=== PATIENT | female | born 1985 | race Caucasian/White ===

== ENCOUNTER 2018-02-27 03:53 | Emergency (ER) | payer MEDICAID, OTHER ==
--- NOTE | 2018-02-27 04:08 | ER Report ---
History and Physical Time Seen By MD: 03:58 Hx. of Stated Complaint: PATIENT STATES SHE STARTED HAVING A BURNING FEELING IN THE BACK OF HER HEAD THAT STARTED 30MINS PRIOR TO EMS ARRIVING TO HER. HPI/ROS CHIEF COMPLAINT: Headache HISTORY OF PRESENT ILLNESS: 32-year-old female traveling on a [employer] bus began to have a burning sensation in the back of her neck. She is concerned that she is suffering a shrunken head. She is concerned that someone in her family, who practices food to is performing a shrunken head ritual on her. Patient called EMS to the bus to bring her in. Patient denies REVIEW OF SYSTEMS: Respiratory: No cough, no dyspnea. Cardiovascular: No chest pain, no palpitations. Gastrointestinal: No vomiting, no abdominal pain. Musculoskeletal: No back pain. Allergies: Coded Allergies: No Known Drug Allergies (Unverified , 02/27/18) Home Meds No Active Prescriptions or Reported Meds Reviewed Nurses Notes: Yes Old Medical Records Reviewed: Yes Constitutional Vital Sign - Last 24 Hours 02/27/18 02/27/18 02/27/18 02/27/18 03:54 04:00 04:30 04:38 Temp 98.3 Pulse 77 78 Resp 16 B/P (MAP) 101/59 100/65 (77) 104/71 (82) Pulse Ox 94 98 02/27/18 02/27/18 02/27/18 02/27/18 04:53 05:00 05:30 05:50 Pulse 80 90 B/P (MAP) 108/65 (79) 122/72 (89) Pulse Ox 98 97 02/27/18 06:00 B/P (MAP) 106/69 (81) Physical Exam General Appearance: The patient is alert, has no immediate need for airway protection and no current signs of toxicity. Vital signs stable, afebrile, pulse ox normal HEENT: Pupils equal and round no injection. Oropharynx without redness or exudate, mucous. Membranes are moist Respiratory: Chest is non tender, lungs are clear to auscultation. Cardiac: regular rate and rhythm Gastrointestinal: Abdomen is soft and non tender, no masses, bowel sounds normal. Musculoskeletal: Neck: Neck is supple and non tender. No thyromegaly, no lymphadenopathy Extremities have full range of motion and are non tender. Skin: No rashes or lesions. DIFFERENTIAL DIAGNOSIS: After history and physical exam differential diagnosis was considered for headache including but not limited to subarachnoid hemorrhage , migraine headache, tension headache and infectious causes such as meningitis, pharyngitis and sinusitis. Medical Decision Making Data Points Result Diagram: 02/27/18 0350 02/27/18 0350 Laboratory Hematology Test 02/27/18 03:50 02/27/18 04:25 Red Blood Count 4.52 M/uL (4.17-5.56) Mean Corpuscular Volume 89.4 fL (80.0-96.0) Mean Corpuscular Hemoglobin 30.8 pg (26.0-33.0) Mean Corpuscular Hemoglobin Concent 34.5 g/dL (32.0-36.0) Red Cell Distribution Width 13.7 % (11.5-14.5) Mean Platelet Volume 8.6 fL (7.2-11.1) Neutrophils (%) (Auto) 50.4 % (39.4-72.5) Lymphocytes (%) (Auto) 39.2 % (17.6-49.6) Monocytes (%) (Auto) 8.4 % (4.1-12.4) Eosinophils (%) (Auto) 0.8 % (0.4-6.7) Basophils (%) (Auto) 1.2 % (0.3-1.4) Nucleated RBC Relative Count (auto) 0.1 /100WBC Neutrophils # (Auto) 3.5 K/uL (2.0-7.4) Lymphocytes # (Auto) 2.7 K/uL (1.3-3.6) Monocytes # (Auto) 0.6 K/uL (0.3-1.0) Eosinophils # (Auto) 0.1 K/uL (0.0-0.5) Basophils # (Auto) 0.1 K/uL (0.0-0.1) Nucleated RBC Absolute Count (auto) 0.00 K/uL Sodium Level 139 mmol/L (137-145) Potassium Level 4.0 mmol/L (3.5-5.0) Chloride Level 100 mmol/L (98-107) Carbon Dioxide Level 27 mmol/L (22-31) Blood Urea Nitrogen 12 mg/dl (7-18) Creatinine 0.70 mg/dl (0.52-1.04) Glomerular Filtration Rate Calc > 60.0 Random Glucose 99 mg/dl (75-110) Calcium Level 10.2 mg/dl (8.4-10.2) Magnesium Level 1.9 mg/dl (1.7-2.2) Total Bilirubin 0.3 mg/dl (0.2-1.3) Aspartate Amino Transf (AST/SGOT) 23 U/L (0-35) Alanine Aminotransferase (ALT/SGPT) 22 U/L (0-56) Alkaline Phosphatase 85 U/L (0-126) Total Protein 7.0 gm/dl (6.3-8.2) Albumin 4.1 g/dl (3.5-5.0) Salicylates Level < 10 mg/L Salicylate Last Dose Date unk Acetaminophen Level < 10 ug/ml Serum Alcohol < 10 mg/dl Urine Color Yellow Urine Clarity Slightly-cloudy Urine pH 5.0 pH (4.8-9.5) Urine Specific Strong 1.025 Urine Protein Negative mg/dL (NEGATIVE) Urine Glucose (UA) Negative mg/dL (NEGATIVE) Urine Ketones Negative mg/dL (NEGATIVE) Urine Blood Negative (NEGATIVE) Urine Nitrite Negative (NEGATIVE) Urine Bilirubin Negative (NEGATIVE) Urine Urobilinogen Negative mg/dL (0.2-1.9) Urine Leukocyte Esterase Negative (NEGATIVE) Urine RBC 1 /HPF (0-2/HPF) Urine WBC 3 /HPF (0-5/HPF) Urine Squamous Epithelial Cells Many /LPF (</=FEW) Urine Transitional Epithelial Cells Few /LPF (NONE-FEW) Urine Bacteria Negative /HPF (NONE-FEW) Urine Mucus Few /HPF (NONE-FEW) Urine HCG, Qualitative Negative (NEGATIVE) Urine Opiates Screen Negative Urine Barbiturates Screen Negative Ur Tricyclic Antidepressants Screen Negative Urine Phencyclidine Screen Negative Urine Amphetamines Screen Positive Urine Benzodiazepines Screen Negative Urine Cocaine Screen Negative Urine Cannabinoids Screen Negative Chemistry Test 02/27/18 03:50 02/27/18 04:25 White Blood Count 7.0 k/uL (4.5-11.0) Red Blood Count 4.52 M/uL (4.17-5.56) Hemoglobin 13.9 g/dL (12.0-16.0) Hematocrit 40.4 % (34.0-47.0) Mean Corpuscular Volume 89.4 fL (80.0-96.0) Mean Corpuscular Hemoglobin 30.8 pg (26.0-33.0) Mean Corpuscular Hemoglobin Concent 34.5 g/dL (32.0-36.0) Red Cell Distribution Width 13.7 % (11.5-14.5) Platelet Count 384 K/uL (150-450) Mean Platelet Volume 8.6 fL (7.2-11.1) Neutrophils (%) (Auto) 50.4 % (39.4-72.5) Lymphocytes (%) (Auto) 39.2 % (17.6-49.6) Monocytes (%) (Auto) 8.4 % (4.1-12.4) Eosinophils (%) (Auto) 0.8 % (0.4-6.7) Basophils (%) (Auto) 1.2 % (0.3-1.4) Nucleated RBC Relative Count (auto) 0.1 /100WBC Neutrophils # (Auto) 3.5 K/uL (2.0-7.4) Lymphocytes # (Auto) 2.7 K/uL (1.3-3.6) Monocytes # (Auto) 0.6 K/uL (0.3-1.0) Eosinophils # (Auto) 0.1 K/uL (0.0-0.5) Basophils # (Auto) 0.1 K/uL (0.0-0.1) Nucleated RBC Absolute Count (auto) 0.00 K/uL Glomerular Filtration Rate Calc > 60.0 Calcium Level 10.2 mg/dl (8.4-10.2) Magnesium Level 1.9 mg/dl (1.7-2.2) Total Bilirubin 0.3 mg/dl (0.2-1.3) Aspartate Amino Transf (AST/SGOT) 23 U/L (0-35) Alanine Aminotransferase (ALT/SGPT) 22 U/L (0-56) Alkaline Phosphatase 85 U/L (0-126) Total Protein 7.0 gm/dl (6.3-8.2) Albumin 4.1 g/dl (3.5-5.0) Salicylates Level < 10 mg/L Salicylate Last Dose Date unk Acetaminophen Level < 10 ug/ml Serum Alcohol < 10 mg/dl Urine Color Yellow Urine Clarity Slightly-cloudy Urine pH 5.0 pH (4.8-9.5) Urine Specific Strong 1.025 Urine Protein Negative mg/dL (NEGATIVE) Urine Glucose (UA) Negative mg/dL (NEGATIVE) Urine Ketones Negative mg/dL (NEGATIVE) Urine Blood Negative (NEGATIVE) Urine Nitrite Negative (NEGATIVE) Urine Bilirubin Negative (NEGATIVE) Urine Urobilinogen Negative mg/dL (0.2-1.9) Urine Leukocyte Esterase Negative (NEGATIVE) Urine RBC 1 /HPF (0-2/HPF) Urine WBC 3 /HPF (0-5/HPF) Urine Squamous Epithelial Cells Many /LPF (</=FEW) Urine Transitional Epithelial Cells Few /LPF (NONE-FEW) Urine Bacteria Negative /HPF (NONE-FEW) Urine Mucus Few /HPF (NONE-FEW) Urine HCG, Qualitative Negative (NEGATIVE) Urine Opiates Screen Negative Urine Barbiturates Screen Negative Ur Tricyclic Antidepressants Screen Negative Urine Phencyclidine Screen Negative Urine Amphetamines Screen Positive Urine Benzodiazepines Screen Negative Urine Cocaine Screen Negative Urine Cannabinoids Screen Negative Toxicology Test 02/27/18 03:50 02/27/18 04:25 Salicylates Level < 10 mg/L Salicylate Last Dose Date unk Acetaminophen Level < 10 ug/ml Serum Alcohol < 10 mg/dl Urine Opiates Screen Negative Urine Barbiturates Screen Negative Ur Tricyclic Antidepressants Screen Negative Urine Phencyclidine Screen Negative Urine Amphetamines Screen Positive Urine Benzodiazepines Screen Negative Urine Cocaine Screen Negative Urine Cannabinoids Screen Negative Urinalysis Test 02/27/18 04:25 Urine Color Yellow Urine Clarity Slightly-cloudy Urine pH 5.0 pH (4.8-9.5) Urine Specific Strong 1.025 Urine Protein Negative mg/dL (NEGATIVE) Urine Glucose (UA) Negative mg/dL (NEGATIVE) Urine Ketones Negative mg/dL (NEGATIVE) Urine Blood Negative (NEGATIVE) Urine Nitrite Negative (NEGATIVE) Urine Bilirubin Negative (NEGATIVE) Urine Urobilinogen Negative mg/dL (0.2-1.9) Urine Leukocyte Esterase Negative (NEGATIVE) Urine RBC 1 /HPF (0-2/HPF) Urine WBC 3 /HPF (0-5/HPF) Urine Squamous Epithelial Cells Many /LPF (</=FEW) Urine Transitional Epithelial Cells Few /LPF (NONE-FEW) Urine Bacteria Negative /HPF (NONE-FEW) Urine Mucus Few /HPF (NONE-FEW) Urine HCG, Qualitative Negative (NEGATIVE) ED Course/Re-evaluation ED Course Patient was admitted to examination room. H&P was done. The differential diagnoses was considered. On clinical examination. Patient is alert and oriented 3. She has some irrational beliefs. The people are trying to shrink her head. She is not suicidal or homicidal. Diagnostic evaluation is performed. Patient's tox screen is positive for methamphetamines. Patient was medicated with Zyprexa 10 mg by mouth. Patient discharged to follow up with [facility]. Decision to Disposition Date: February 27, 2018 Decision to Disposition Time: 04:53 Depart Departure Latest Vital Signs Vital Signs Date Time Temp Pulse Resp B/P (MAP) Pulse Ox O2 Delivery O2 Flow Rate FiO2 02/27/18 06:00 106/69 (81) 02/27/18 05:50 90 97 02/27/18 03:54 98.3 16 Impression: Primary Impression: Acute psychosis Additional Impression: Methamphetamine abuse Condition: Improved Disposition: HOME OR SELF-CARE Referrals: [facility] New Scripts No Active Prescriptions or Reported Meds Patient Instructions: Polysubstance Abuse (ED) Additional Instructions: Stop using illegal substances. Follow up with [facility] Problem Qualifiers PHUONG WELCH DO February 27, 2018 04:08
[2018-02-27 04:27] LABS: PLATELET COUNT, AUTOMATED 384 K/uL (150-450)
[2018-02-27] MEDS ORDERED: OLANZapine ZYDIS ODT 5MG TABDP PO ONE (05:00)
[2018-02-27 06:00] VITALS: BP 106/69
== END 2018-02-27 06:09 | disposition home or self-care (01) ==
LOC: ER 03:57
DX: F23 Brief psychotic disorder (principal); F15.10 Other stimulant abuse, uncomplicated
CPT/HCPCS: 80305; 81001; 81025; 83735; 84443; 85025; 99284; G0480; 80320; 80329; 82040; 82247; 82310; 82374; 82435; 82565; 82947; 84075; 84132; 84155; 84295; 84450; 84460; 84520

== ENCOUNTER 2018-02-27 07:41 | Emergency (ER) | payer MEDICAID, OTHER ==
[2018-02-27 07:42] VITALS: BP 126/96
--- NOTE | 2018-02-27 08:00 | ER Report ---
History and Physical Time Seen By MD: 07:15 Hx. of Stated Complaint: PATIEN REPORTS THAT SHE THINKS CANNIBALS ARE EATING HER HEAD HPI/ROS CHIEF COMPLAINT: Acute psychosis, "cannibals are trying to eat her " HISTORY OF PRESENT ILLNESS: Patient is a 32-year-old female who was seen overnight for concerns of having "her head shrunken". Patient was initially pulled off a [employer] bus. She was evaluated, medically cleared by physical exam and laboratory findings and discharged with Zyprexa. Patient returns this morning with complaints of "[employer] trying to eat her" and her "father trying to kill her". Patient was brought in by police officers due to concern for patient not being safe. Patient denies suicidal or homicidal ideations at this time. She did have a tox screen positive for amphetamines however currently denies taking any. She is visibly anxious, fearful that she is going to . Patient denies fevers, chills, chest pain, shortness of breath. REVIEW OF SYSTEMS: Constitutional: No fever, no chills. Eyes: No discharge. ENT: No sore throat. Cardiovascular: No chest pain, no palpitations. Respiratory: No cough, no shortness of breath. Gastrointestinal: No abdominal pain, no vomiting. Genitourinary: No hematuria. Musculoskeletal: No back pain. Skin: No rashes. Neurological: No headache. Allergies: Coded Allergies: No Known Drug Allergies (Unverified , 02/27/18) Home Meds No Active Prescriptions or Reported Meds Hx Substance Use Disorder: No Hx Alcohol Use: No Constitutional Vital Sign - Last 24 Hours 02/27/18 07:42 Pulse 119 Resp 24 B/P (MAP) 126/96 Pulse Ox 94 O2 Delivery Room Air Physical Exam General Appearance: The patient is alert, has no immediate need for airway protection and no signs of toxicity. + anxious appearing Eyes: Pupils equal and round no pallor or injection. ENT, Mouth: Mucous membranes are moist. Respiratory: There are no retractions, lungs are clear to auscultation. Cardiovascular: + tachycardic and rhythm. Gastrointestinal: Abdomen is soft and non tender, no masses, bowel sounds normal. Neurological: Moving all extremities, no focal deficits Skin: Warm and dry, no rashes. Musculoskeletal: Extremities are nontender, nonswollen and have full range of motion. DIFFERENTIAL DIAGNOSIS: After history and physical exam differential diagnosis was considered for acute psychosis, underlying psychiatric disorder, intoxication. trauma Medical Decision Making ED Course/Re-evaluation ED Course Patient is a 32-year-old female here with complaints of acute psychosis. He was previously evaluated overnight for concerns of "having her head shrunken". She was medically cleared with laboratory and physical examination and discharged with Zyprexa. Patient returns escorted by police officers due to "concern for cannibals eating her" and her father trying to kill her. She is very anxious and fearful at time of evaluation concerned that "she is going to ". Patient' s labs were positive for amphetamines out of the patient currently denies taking this drug. I discussed the patient with on-call psychiatry attending accepted the patient to the floor. Patient initially was willing to voluntarily check in for evaluation on the behavioral health floor. She was mildly tachycardic and tachypneic on examination, anxious, otherwise HD stable, afebrile, normotensive. Decision to Disposition Date: February 27, 2018 Decision to Disposition Time: 08:06 Depart Departure Latest Vital Signs Vital Signs Date Time Temp Pulse Resp B/P (MAP) Pulse Ox O2 Delivery O2 Flow Rate FiO2 02/27/18 07:42 119 24 126/96 94 Room Air Impression: Primary Impression: Acute psychosis Additional Impression: Methamphetamine abuse Condition: Condition Unchanged Disposition: Admitted from ER New Scripts No Active Prescriptions or Reported Meds Problem Qualifiers MARLEE CANDELARIO DO February 27, 2018 08:00
== END 2018-02-27 08:37 ==
LOC: ER 08:14
DX: F23 Brief psychotic disorder (principal); F15.10 Other stimulant abuse, uncomplicated
CPT/HCPCS: 99285

== ENCOUNTER 2018-02-27 08:32 | Inpatient (IN) | payer MEDICAID, OTHER ==
[~2018-02-27] VITALS: Ht 160 cm; Wt 58.5 kg
[2018-02-27 08:45] VITALS: BP 122/62
[2018-02-27] MEDS ORDERED: LORazepam 1 MG TAB ONE ×2 (09:01→09:22)
[2018-02-27] MEDS ORDERED: OLANZapine ZYDIS ODT 5MG TABDP ONE (09:01)
[2018-02-27] MEDS ORDERED: LORazepam 1 MG TAB PO ONE ×2 (09:05→09:30)
[2018-02-27] MEDS ORDERED: OLANZapine ZYDIS ODT 5MG TABDP PO ONE (09:05)
[2018-02-27] MEDS ORDERED: LORazepam 1 MG TAB PO PRN (16:40)
[2018-02-27 18:25] VITALS: BP 116/70
[2018-02-27] MEDS ORDERED: OLANZapine ZYDIS ODT 5MG TABDP PO SCH (21:00)
[2018-02-28 05:31] VITALS: BP 127/86
--- NOTE | 2018-02-28 13:28 | BHS Progress Note ---
[facility] - Subjective Progress Notes Subjective Patient noted to be much more calm today. Patient quiet, making limited eye contact with male staff, and slightly better with female staff. Patient likely suffering from stimulant use induced psychosis from methamphetamine. Eating and sleeping well. Will schedule zyprexa at [facility]. Will stop ativan. Suicidal Ideation: None Homicidal Ideation: None [facility] - Objective Physical Exam Vital Signs Vital Signs Date Time Temp Pulse Resp B/P (MAP) Pulse Ox O2 Delivery O2 Flow Rate FiO2 02/28/18 05:31 98.4 84 16 127/86 (100) 94 Room Air Muscle Strength and Tone: WNL Gait and Station: Steady [facility] Medications Reviewed: Side Effects, Benefits of Medication, Risks Allergies Reviewed: Yes Mental Status Exam General Appearance: Casual, Well Groomed, No Good Eye Contact, Cooperative, Polite, Good Interaction, No Unkept, No Tearful, No Psychomotor Agitation, No Psychomotor Retardation, Bizarre Mannerisms, Tics Speech: Clear, Spontaneous, Normal Rate, Normal Rhythm, No Normal Volume (quiet ) Mood: Dysthmic/Depressed (likely amphetamine crash) Affect: Calm, Flat, Withdrawn, No Tearful, No Anxious, No Agitated Thought Process: No Loose Associations, No Flight of Ideas Thought Content: No Suicidal Ideation, No Homicidal Ideation, Delusions ( ongoing somatic delusions, likely amphetamine induced. ), No Auditory Halllucinations, No Visual Hallucinations, No Thought Broadcasting, No Ideas of Reference, No Obsessions, Compulsions Sensorium: Clear Cognition: Alert & Oriented-Person, Alert & Oriented-Place, Alert & Oriented- Time, No [id number] Memory: Immediate, Recent, Remote Intelligence: Average Insight Judgment: Poor (patient does not seem to understand likely corelation of symptoms with stimulant use. 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 Last Edited By: Alireza Krishnan on February 28, 2018 13:27 Status: Acute (2) Stimulant use disorder Status: Chronic Condition 1. continue treatment. 2. zyprexa QHS. ALIREZA KRISHNAN MD February 28, 2018 13:28
[2018-02-28 13:57] VITALS: BP 114/83
[2018-02-28] MEDS: diphenhydrAMINE 25 MG CAP PO SCH (20:19)
[2018-02-28] MEDS ORDERED: OLANZapine 5 MG TAB PO SCH (21:00)
[2018-02-28 22:20] VITALS: BP 115/82
[2018-03-01 05:07] VITALS: BP 115/89
[2018-03-01] MEDS: OLANZapine 5 MG TAB PO SCH (09:01)
--- NOTE | 2018-03-01 10:32 | BHS Progress Note ---
[facility] - Subjective Progress Notes Subjective Patient asking this provider today if "cannibals are consuming my bodily fluids " and appearing to try to capture the attention of this provider by purposefully jerking her body sporadically during the interview. Will continue to try and gather collateral information. When asked when this patient was psychiatrically hospitalized last, she replied "I don't Know". Will increase zyprexa today with AM dosing as well, and continue to try and contact patient's sister who lives in [place]. Patient continues to focus on "my head is shrinking" and "I don't want to go to hell when I ". Appetite good, Sleep delayed some, but mostly intact. No other concerns today. Suicidal Ideation: None Homicidal Ideation: None [facility] - Objective Physical Exam Vital Signs Vital Signs Date Time Temp Pulse Resp B/P (MAP) Pulse Ox O2 Delivery O2 Flow Rate FiO2 03/01/18 05:07 99.6 111 16 115/89 (98) 95 Room Air Muscle Strength and Tone: WNL Gait and Station: Steady [facility] Medications Reviewed: Side Effects, Benefits of Medication, Risks Allergies Reviewed: Yes Mental Status Exam General Appearance: Casual, Well Groomed, No Good Eye Contact (some better today ), Cooperative, Polite, Good Interaction, No Unkept, No Tearful, No Psychomotor Agitation, No Psychomotor Retardation, Bizarre Mannerisms, Tics Speech: Clear, Spontaneous, Normal Rate, Normal Rhythm, No Normal Volume (quiet ) Mood: Dysthmic/Depressed (likely amphetamine crash) Affect: Calm, Flat, Withdrawn, No Tearful, No Anxious, No Agitated Thought Process: No Loose Associations, No Flight of Ideas Thought Content: No Suicidal Ideation, No Homicidal Ideation, Delusions ( ongoing somatic delusions, likely amphetamine induced. ), No Auditory Halllucinations, No Visual Hallucinations, No Thought Broadcasting, No Ideas of Reference, No Obsessions, Compulsions Sensorium: Clear Cognition: Alert & Oriented-Person, Alert & Oriented-Place, Alert & Oriented- Time, No [id number]-[id number] Memory: Immediate, Recent, Remote Intelligence: Average Insight Judgment: Poor (patient does not appear to be able to understand likely corelation of symptoms with stimulant use. 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 Last Edited By: Alireza Krishnan on February 28, 2018 13:27 Status: Acute (2) Stimulant use disorder Status: Chronic Condition 1. increase zyprexa today to 5mg QAM and 15mg QHS 2. contact family members. ALIREZA KRISHNAN MD March 01, 2018 10:32
--- NOTE | 2018-03-01 12:31 | HISTORY AND PHYSICAL ---
DATE OF ADMISSION: February 27, 2018 DATE OF INITIAL PSYCHIATRIC INTERVIEW: February 27, 2018, approximately 0900. PRESENTING PROBLEM, CHIEF COMPLAINT "My head is shrinking. I am going to . Please don't let me go to hell when I . The cannibals are trying to eat me." HISTORY OF PRESENT ILLNESS Patient is a 32-year-old female that originally presented to the emergency department, reporting she was traveling on a [employer] bus and began to have a burning sensation in the back of her neck. She was concerned with thoughts that her head was shrinking, and that someone in her family was performing a shrunken head ritual on her. She had called EMS to the bus to bring her in. Upon initial evaluation, patient was positive for amphetamines. She was encouraged to stop use of illegal substances. She was to follow up with [facility], and was given Zyprexa Zydis 10 mg one dose. Patient was discharged from the emergency room, although returned to the emergency department reporting that cannibals were trying to eat her. Patient had previously been medical cleared by physical exam and discharged with Zyprexa, although returned, reporting her father was trying to kill her, and having been brought in the second time by police officers due to concern for patient not being safe. Patient visibly anxious, fearful that she was going to . She denied suicidal or homicidal ideation. She denies use of illicit substances. She was agreeable to a voluntary admission to Behavioral Health Unit for further evaluation and treatment. Unable to obtain accurate history when initially interviewed, repeating the phrase, "The cannibals are going to eat me. Please don't let me ." in response to all questions. She denies depression, anxiety, anger, denies visual or auditory hallucinations. She denies intent to harm herself or others. She is visibly anxious, tremulous, unwilling to sit down for any length of time to meet with team members. She is pacing, paranoid, and untrustworthy of staff members. MENTAL HEALTH HISTORY Unable to accurately obtain, as patient answering "no" to history of previous inpatient psychiatric hospitalizations or suicide attempts. It is unknown at this time if she has previously had mental health care or been prescribed medications. FAMILY PSYCHIATRIC HISTORY Unable to obtain at present time due to psychosis. MEDICAL HISTORY Unable to obtain at present time due to psychosis. Answering "no" to all questions. SOCIAL HISTORY Patient reports that she was born in [place], [place]. She reports she has been and on one occasion. She has two children ages 7 and 12. She states her has custody of them, unknown if she is currently . She reports that she was traveling from [place] to [place], [place]. It is unknown if she has been accompanied by anyone, although did summon EMS support due to paranoia and thoughts that people were poisoning her. LEGAL HISTORY Unknown. OFFENDER/VICTIM ISSUES Unknown. SUBSTANCE ABUSE HISTORY Answering "no" to previous use of illicit substances, although positive for amphetamines on urine drug screen. Blood alcohol level is negative. PHYSICAL EXAMINATION Please see emergency room notes for physical exam. Vital signs at time of initial assessment include temperature of 99.2, pulse of 100, blood pressure 122 /62, pulse oximetry 95% on room air. LABORATORY DATA Laboratory data including CBC within normal limits. Chemistry panel within normal limits. Urine screen within normal limits with many squamous epithelial cells. Toxicology includes salicylate, acetaminophen, serum alcohol levels less than 10. Urine screen negative for opiates, barbiturates, tricyclics, phencyclidine, benzodiazepines, cocaine and cannabinoids. Positive for amphetamines. MENTAL STATUS EXAMINATION GENERAL APPEARANCE, BEHAVIOR AND ATTITUDE: Patient is pacing, anxious, tremulous. She is uncooperative with interview, untrustworthy of team members, paranoid. Psychomotor agitation. SPEECH: Regular volume, tone. Limited responses. Guarded with information. Fearful. MOOD: Dysthymic, anxious. AFFECT: Mood congruent. THOUGHT PROCESS: Illogical, uhd-fupd-ixlyiwqj. Seems confused at times. Limited responses. Difficulty following questions. THOUGHT CONTENT: Denying suicidal or homicidal ideation. Delusional. Paranoid. Denies visual or auditory hallucinations. SENSORIUM: Other. Possibly responding to audio hallucinations. COGNITION: Oriented to person. Disoriented to place, time, situation. MEMORY: Immediate, recent, remote with deficit. Difficulty remembering recent and remote events. Poor historian. Guarded with information. INTELLIGENCE: Unable to accurately assess. INSIGHT AND JUDGMENT: Considered poor related to current psychosis. ASSESSMENT Patient is a 32-year-old female that presented to the emergency room initially after having called EMS to the [facility] due to reports of burning in her neck, concerned that her head was shrinking and that someone in her family was performing a ritual on her. Patient positive for amphetamines. She was medically cleared and discharged with olanzapine 10 mg, encouraged to follow up with outpatient mental health services and encouraged to stop using illicit substances. She returned to the emergency room after having been brought in by police due to concerns that she was unsafe, reporting "cannibals are trying to eat me". Reporting thoughts that her father was trying to kill her. Fearful of dying, reporting that her head was shrunken. Patient was agreeable to voluntary transfer to the behavioral health unit for further evaluation and treatment. DIAGNOSES PER DSM-V Unspecified psychosis. Stimulant use disorder, positive for amphetamines Rule out substance-induced psychosis. PLAN 1. Will admit to the unit. 2. Necessary precautions will be implemented. 3. Individual and group therapy to be initiated 4. Medications will be administered and titrated accordingly. 5. Further labs, imaging as appropriate. 6. Estimated length of stay unknown at present time. Discharge dependent on daily evaluations and progress. We will continue to monitor closely, maintain precautions and obtain collateral information and accurate history. ALISSA
[2018-03-01 14:33] VITALS: BP 135/83
[2018-03-01] MEDS ORDERED: MAGNESIUM SULF GRAN 454 GM BOX TP PRN (19:00)
[2018-03-01] MEDS: diphenhydrAMINE 25 MG CAP PO SCH (19:07)
[2018-03-01] MEDS ORDERED: CLOTRIMAZOLE 1% CR 30 GM TUBE TP ONE (20:00)
[2018-03-01] MEDS ORDERED: OLANZapine 5 MG TAB PO SCH (21:00)
[2018-03-01] MEDS ORDERED: ACETAMINOPHEN 325 MG TAB ONE (22:19)
[2018-03-01] MEDS: ACETAMINOPHEN 325 MG TAB PO PRN (22:27)
[2018-03-02] MEDS ORDERED: DIAZEPAM 10 MG TAB PO ONE (00:25)
[2018-03-02 01:00] VITALS: BP 117/76
[2018-03-02 07:45] VITALS: BP 106/70
[2018-03-02] MEDS: OLANZapine 5 MG TAB PO SCH (08:12)
--- NOTE | 2018-03-02 10:34 | BHS Progress Note ---
[facility] - Subjective Progress Notes Subjective Patient reluctantly responding to prompting regarding self care on the unit, patient having difficulty sleeping last night even on increased dosing of zyprexa. Will consider switch to low dose Thorazine for more beneficial effects with psychosis and sleep. Patient also demonstrating some underlying cluster B personality symptoms at times. Will continue treatment with focus on collateral information gathering, with search for potential relatives in [place] who could possibly assist with travel. Patient clearly indicating that she what like to return to [place], [place]. Suicidal Ideation: None Homicidal Ideation: None [facility] - Objective Physical Exam Vital Signs Vital Signs Date Time Temp Pulse Resp B/P (MAP) Pulse Ox O2 Delivery O2 Flow Rate FiO2 03/02/18 08:39 120 03/02/18 07:45 98.7 106/70 (82) 96 Room Air 03/02/18 01:00 16 Muscle Strength and Tone: WNL Gait and Station: Steady [facility] Medications Reviewed: Side Effects, Benefits of Medication, Risks Allergies Reviewed: Yes Mental Status Exam General Appearance: Casual, Well Groomed, Good Eye Contact (some better today ) , Cooperative, Polite, Good Interaction, No Unkept, No Tearful, No Psychomotor Agitation, No Psychomotor Retardation, Bizarre Mannerisms, Tics Speech: Clear, Spontaneous, Normal Rate, Normal Rhythm, No Normal Volume (quiet ) Mood: Dysthmic/Depressed (likely amphetamine crash) Affect: Calm, Flat, Withdrawn, No Tearful, No Anxious, No Agitated Thought Process: No Loose Associations, No Flight of Ideas Thought Content: No Suicidal Ideation, No Homicidal Ideation, Delusions ( ongoing somatic delusions, likely amphetamine induced. ), No Auditory Halllucinations, No Visual Hallucinations, No Thought Broadcasting, No Ideas of Reference, No Obsessions, Compulsions Sensorium: Clear Cognition: Alert & Oriented-Person, Alert & Oriented-Place, Alert & Oriented- Time, No Vrnae-Celcvbdz-Iiqukqqia Memory: Immediate, Recent, Remote Intelligence: Average Insight Judgment: Poor (patient does not appear to be able to understand likely corelation of symptoms with stimulant use. ) [facility] Assessment and Plan Piip-ti-Muuc Encounter Date: March 02, 2018 Auam-yz-Vpqu Encounter Time: 10:00 [facility] Plan: Necessary Precautions, Individual/Group Therapy, Admin/Titrate Meds, Educate Patient Multpiple Antipsychotics Used: No Problems: (1) Amphetamine and psychostimulant-induced psychosis with delusions Optional Permanent Comment: rule out psychosis unspecified, likely underlying [facility] psychotic process. Last Edited By: Alireza Krishnan on March 02, 2018 10:24 Status: Acute (2) Stimulant use disorder Status: Chronic Condition 1. continue treatment. 2. consider thorazine 3. EKG today 4. Continue search for contacts. ALIREZA KRISHNAN MD March 02, 2018 10:34
--- NOTE | 2018-03-02 10:35 | EKG ---
FACILITY: [facility] PATIENT NAME: MYRNA WEINBERG : [id number] MR: [id number] V: [id number] EXAM DATE: ORDERING PHYSICIAN: ALIREZA KRISHNAN TECHNOLOGIST: CHELSEA Razo Reason : ANTIPSYCHOTIC USE Blood Pressure : / mmHG Vent. Rate : 111 BPM Atrial Rate : 111 BPM P-R Int : 130 ms QRS Dur : 068 ms QT Int : 306 ms P-R-T Axes : 068 082 038 degrees QTc Int : 416 ms Sinus tachycardia Otherwise normal ECG Confirmed by EZE CASTRO ([id number]) on 03/02/2018 1:16:04 PM Referred By: ARIELLA Confirmed By:EZE CASTRO
[2018-03-02] MEDS ORDERED: chlorproMAZINE 25 MG TAB PO ONE (10:40)
[2018-03-02] MEDS: chlorproMAZINE 25 MG TAB PO PRN ×2 (12:38→23:58)
[2018-03-02] MEDS: ESCITALOPRAM OXALATE 10 MG TAB PO SCH (12:38)
[2018-03-02] MEDS ORDERED: RISP2TAB70 PO (12:58)
[2018-03-02] MEDS ORDERED: ESCI20TA38 PO (12:58)
[2018-03-02] MEDS ORDERED: ESCI10TA8 PO (12:58)
[2018-03-02] MEDS: diphenhydrAMINE 25 MG CAP PO SCH (19:55)
[2018-03-02 20:54] VITALS: BP 113/90
[2018-03-02] MEDS ORDERED: chlorproMAZINE 25 MG TAB PO SCH (21:00)
[2018-03-03] MEDS ORDERED: LORazepam 2 MG/ML VIAL IM PRN (01:45)
[2018-03-03] MEDS ORDERED: diphenhydrAMINE 50 MG/ML VIAL IM PRN (01:45)
[2018-03-03] MEDS: chlorproMAZINE 25 MG TAB PO PRN (07:19)
[2018-03-03] MEDS: ESCITALOPRAM OXALATE 10 MG TAB PO SCH (08:09)
--- NOTE | 2018-03-03 11:53 | BHS Progress Note ---
S - Subjective Progress Notes Subjective Patient very resistant to care through the PM last evening. Patient trying to hide medication and simultaneously trying to draw staff into mild confrontation. Patient was eventually moved to [facility] area, for the rest of the evening. In the AM, patient remained confrontational, bargaining, and overall resistant to care. Later in the AM becoming compliant and able to talk with her Father on the phone, in order to arrange potential discharge into his care for return to [place], [place] to live with him. Patient able to converse on the phone with father and did not seem to be upset with him, or fearful of him. According to father she had been recently living with him, but had sporadically taken off on a bus two weeks or so ago. Will continue to evaluate the potential of this discharge plan, and will switch patient to Risperdal, which she has been prescribed in [place]. Patient remains psychotic and displaying intentional manipulative behaviors as well. Suicidal Ideation: None Homicidal Ideation: None [facility] - Objective Physical Exam Vital Signs Vital Signs Date Time Temp Pulse Resp B/P (MAP) Pulse Ox O2 Delivery O2 Flow Rate FiO2 03/02/18 20:54 99.0 111 113/90 (98) 94 Room Air 03/02/18 01:00 16 Muscle Strength and Tone: WNL Gait and Station: Steady [facility] Medications Reviewed: Side Effects, Benefits of Medication, Risks Allergies Reviewed: Yes Mental Status Exam General Appearance: Casual, Well Groomed, Good Eye Contact (some better today ) , Cooperative, Polite, Good Interaction, No Unkept, No Tearful, No Psychomotor Agitation, No Psychomotor Retardation, Bizarre Mannerisms, Tics Speech: Clear, Spontaneous, Normal Rate, Normal Rhythm, No Normal Volume (quiet ) Mood: Dysthmic/Depressed (frustrated) Affect: Calm, Flat, Withdrawn, No Tearful, No Anxious, No Agitated Thought Process: Goal Directed (I want to go to [place]), No Loose Associations, No Flight of Ideas Thought Content: No Suicidal Ideation, No Homicidal Ideation, Delusions ( ongoing somatic delusions, likely propelled by recent amphetamine use. ), No Auditory Halllucinations, No Visual Hallucinations, No Thought Broadcasting, No Ideas of Reference, No Obsessions, Compulsions Sensorium: Clear Cognition: Alert & Oriented-Person, Alert & Oriented-Place, Alert & Oriented- Time, No Yrjhp-Ozevnbde-Tmqltdkde (not fully) Memory: Immediate, Recent, Remote Intelligence: Average Insight Judgment: Poor (patient does not appear to be able to understand likely corelation of symptoms with stimulant use. 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 Last Edited By: Alireza Krishnan on March 02, 2018 10:24 Status: Acute (2) Stimulant use disorder Status: Chronic Condition 1. work to develop discharge plan, likely involving transport by father to [place]. 2. switch to Risperdal which has been prescribed to patient before in [place], presumably upon exit from psychiatric facility. ALIREZA KRISHNAN MD March 03, 2018 11:53
[2018-03-03 15:14] VITALS: BP 110/81
[2018-03-03] MEDS: risperiDONE 0.25 MG TAB PO PRN (18:13)
[2018-03-03] MEDS: diphenhydrAMINE 25 MG CAP PO SCH (21:05)
[2018-03-03] MEDS: risperiDONE 1 MG TAB PO SCH (21:06)
[2018-03-04 03:41] VITALS: BP 111/80
[2018-03-04] MEDS: risperiDONE 0.25 MG TAB PO PRN ×2 (03:43→14:03)
[2018-03-04] MEDS: ESCITALOPRAM OXALATE 10 MG TAB PO SCH (08:13)
[2018-03-04] MEDS: risperiDONE 1 MG TAB PO SCH ×2 (08:13→21:00)
[2018-03-04 11:20] VITALS: BP 104/72
--- NOTE | 2018-03-04 13:14 | BHS Progress Note ---
[facility] - Subjective Progress Notes Subjective Patient able to effectively communicate that she believes that her father will be planning on coming to [place] to pick her up on the 06 of March. when asked what the date is today, she replied "I don't know", but was able to state it correctly upon further questioning. patient seems to continue to have bouts of frustration sometimes directed at staff, but also seems to have demonstrated a response to medications to a degree. With recent change to Risperdal, as this medication had been previously prescribed in [place], [place]. Will continue to verify likely departure plans with her father, who we and the patient has communicated with. Patient indicates a desire to return to [place] to live with him. Will continue medications art current dose. Suicidal Ideation: None Homicidal Ideation: None [facility] - Objective Physical Exam Vital Signs Vital Signs Date Time Temp Pulse Resp B/P (MAP) Pulse Ox O2 Delivery O2 Flow Rate FiO2 03/04/18 03:41 100.3 129 111/80 (90) 91 Room Air 03/03/18 15:14 18 Muscle Strength and Tone: WNL Gait and Station: Steady [facility] Medications Reviewed: Side Effects, Benefits of Medication, Risks Allergies Reviewed: Yes Mental Status Exam General Appearance: Casual, Well Groomed, Good Eye Contact (some better today ) , Cooperative, Polite, Good Interaction, No Unkept, No Tearful, No Psychomotor Agitation, No Psychomotor Retardation, Bizarre Mannerisms, Tics Speech: Clear, Spontaneous, Normal Rate, Normal Rhythm, No Normal Volume (quiet ) Mood: Dysthmic/Depressed (frustrated) Affect: Calm, Flat, Withdrawn, No Tearful, No Anxious, No Agitated Thought Process: Goal Directed (I want to go to [place]), No Loose Associations, No Flight of Ideas Thought Content: No Suicidal Ideation, No Homicidal Ideation, Delusions ( ongoing somatic delusions, likely propelled by recent amphetamine use. ), No Auditory Halllucinations, No Visual Hallucinations, No Thought Broadcasting, No Ideas of Reference, No Obsessions, Compulsions Sensorium: Clear Cognition: Alert & Oriented-Person, Alert & Oriented-Place, Alert & Oriented- Time, No Apadz-Dnncaafx-Yjzrvajkq (not fully) Memory: Immediate, Recent, Remote Intelligence: Average Insight Judgment: Poor (patient does not appear to be able to understand likely corelation of symptoms with stimulant use. ) [facility] Assessment and Plan Dlmk-he-Agjo Encounter Date: March 04, 2018 Qnfx-ju-Aoit Encounter Time: 09:00 [facility] Plan: Necessary Precautions, Individual/Group Therapy, Admin/Titrate Meds, Educate Patient Multpiple Antipsychotics Used: No Problems: (1) Amphetamine and psychostimulant-induced psychosis with delusions Optional Permanent Comment: rule out psychosis unspecified, likely underlying nursing home psychotic process. Last Edited By: Alireza Krishnan on March 02, 2018 10:24 Status: Acute (2) Stimulant use disorder Status: Chronic (3) Unspecified psychosis Optional Permanent Comment: likely chronic psychosis to some degree Last Edited By: Alireza Krishnan on March 04, 2018 13:06 Status: Chronic Condition 1. continue treatment, Risperdal. 2. contact Father regarding potential arrival time. ALIREZA KRISHNAN MD March 04, 2018 13:14
[2018-03-04] MEDS: ACETAMINOPHEN 325 MG TAB PO PRN (15:27)
[2018-03-04 17:05] VITALS: BP 104/84
[2018-03-04] MEDS: diphenhydrAMINE 25 MG CAP PO SCH (21:00)
[2018-03-05 01:22] VITALS: BP 115/83
[2018-03-05] MEDS: ACETAMINOPHEN 325 MG TAB PO PRN (04:43)
[2018-03-05] MEDS: ESCITALOPRAM OXALATE 10 MG TAB PO SCH (08:42)
[2018-03-05] MEDS: risperiDONE 1 MG TAB PO SCH ×2 (08:42→21:04)
--- NOTE | 2018-03-05 09:11 | BHS Progress Note ---
S - Subjective Progress Notes Subjective "I feel like I'm in hell because I cheated on my . Please save me from hell. I see myself laying in the middle of the road in [place] going to hell." Tearful, calm, fixated thoughts on going to hell, delusional thoughts Guilt/shame/depression rated 10/10 Denies urge for harm to self or others. Reports previous admit to [facility] inpatient psychiatric unit in past, guarded with information, doesn't provide details Continues to deny use of amphetamines prior to admit Suicidal Ideation: None Homicidal Ideation: None S - Objective Physical Exam Vital Signs Vital Signs Date Time Temp Pulse Resp B/P (MAP) Pulse Ox O2 Delivery O2 Flow Rate FiO2 03/05/18 01:22 97.7 113 115/83 (94) 90 Room Air 03/04/18 17:05 16 Allergies Coded Allergies No Known Drug Allergies (Unverified02/27/18) Muscle Strength and Tone: WNL Gait and Station: Steady [facility] Medications Reviewed: Side Effects, Benefits of Medication, Risks Allergies Reviewed: Yes Mental Status Exam General Appearance: Casual, Well Groomed, Good Eye Contact (some better today ) , Cooperative, Polite, No Good Interaction, No Unkept, Tearful, No Psychomotor Agitation, No Psychomotor Retardation, Bizarre Mannerisms, Tics, Other (fair interaction) Speech: Clear, Spontaneous, Normal Rate, Normal Rhythm, No Normal Volume (quiet ) Mood: Dysthmic/Depressed (frustrated;rating depression 10/10 denies thoughts of harm to self or others) Affect: Calm, Flat, Withdrawn, No Tearful, Anxious, No Agitated Thought Process: Goal Directed (I want to go to [place]), No Loose Associations, No Flight of Ideas Thought Content: No Suicidal Ideation, No Homicidal Ideation, Delusions ( ongoing somatic delusions, likely propelled by recent amphetamine use. ), No Auditory Halllucinations, No Visual Hallucinations, No Thought Broadcasting, No Ideas of Reference, No Obsessions, Compulsions Sensorium: Clear Cognition: Alert & Oriented-Person, Alert & Oriented-Place, Alert & Oriented- Time, No Krzlw-Shfnvpwk-Wyaxhwkwg (not fully) Memory: Immediate, Recent, Remote Intelligence: Average Insight Judgment: Poor (patient does not appear to be able to understand likely corelation of symptoms with stimulant use. ) Lab Allergies Coded Allergies No Known Drug Allergies (Unverified02/27/18) Vital Signs Date Time Temp Pulse Resp B/P (MAP) Pulse Ox O2 Delivery O2 Flow Rate FiO2 03/05/18 01:22 97.7 113 115/83 (94) 90 Room Air 03/04/18 17:05 16 S Assessment and Plan Uvjg-zf-Seey Encounter Date: March 05, 2018 Ubzn-tc-Drzg Encounter Time: 09:09 [facility] Plan: Necessary Precautions, Individual/Group Therapy, Admin/Titrate Meds, Educate Patient Multpiple Antipsychotics Used: No Problems: (1) Unspecified psychosis Optional Permanent Comment: likely chronic psychosis to some degree Last Edited By: Anshul Alfredo on March 04, 2018 13:06 Status: Chronic (2) Stimulant use disorder Status: Acute (3) Amphetamine and psychostimulant-induced psychosis with delusions Optional Permanent Comment: rule out psychosis unspecified, likely underlying [facility] psychotic process. Last Edited By: Anshul Alfredo on March 02, 2018 10:24 Status: Acute Condition Continue precautions Continue current medication and treatment Ongoing discharge planning, father traveling from [place] to transport patient back home PARAMJIT TUBBS NP March 05, 2018 09:11
[2018-03-05 12:55] VITALS: BP 102/72
[2018-03-05] MEDS ORDERED: CLOTRIMAZOLE 1% CR 30 GM TUBE TP ONE (12:55)
[2018-03-05] MEDS ORDERED: LORazepam 1 MG TAB PO ONE (17:40)
[2018-03-05 17:50] VITALS: BP 96/70
[2018-03-05] MEDS: diphenhydrAMINE 25 MG CAP PO SCH (21:04)
[2018-03-06 01:48] VITALS: BP 105/69
[2018-03-06] MEDS: ACETAMINOPHEN 325 MG TAB PO PRN (03:14)
[2018-03-06] MEDS: ESCITALOPRAM OXALATE 10 MG TAB PO SCH (08:22)
[2018-03-06] MEDS: risperiDONE 1 MG TAB PO SCH (08:22)
[2018-03-06] MEDS ORDERED: RISP-29 PO (09:15)
[2018-03-06] MEDS ORDERED: DIPH-740 PO (09:15)
--- NOTE | 2018-03-06 09:20 | EKG ---
FAC[place] [facility] [place]IENT NAME: MYRNA WEINBERG : [id number] MR: [id number] V: [id number] EXAM DATE: ORDERING PHYSICIAN: PARAMJIT TUBBS TECHNOLOGIST: KACY Test Reason : TACHYCARDIA Blood Pressure : / mmHG Vent. Rate : 107 BPM Atrial Rate : 107 BPM P-R Int : 126 ms QRS Dur : 074 ms QT Int : 304 ms P-R-T Axes : 081 089 057 degrees QTc Int : 405 ms Sinus tachycardia Biatrial enlargement No ST-T abnormalities When compared with ECG of 02-MAR-2018 10:17, No significant change was found Confirmed by EZE CASTRO ([id number]) on 03/06/2018 1:47:08 PM Referred By: ARLEY Confirmed By:EZE CASTRO
--- NOTE | 2018-03-08 12:53 | DISCHARGE SUMMARY ---
FINAL DIAGNOSES PER DSM-V Unspecified psychotic disorder. Methamphetamine use disorder. Cannabis use disorder. REASON FOR ADMISSION Patient was admitted to the unit on a voluntary basis after EMS brought her to the emergency room, where she had reported that she had thoughts that her head was shrinking. She was positive for amphetamines upon admission. PHYSICAL EXAMINATION Patient is in no acute distress. Please see emergency room note for complete review of systems. Vital signs on the day of discharge include temperature 98.4 , pulse 106, blood pressure 105/69, pulse oximetry 94% on room air. LABORATORY DATA Completed upon admission, CBC unremarkable. Chemistry panel unremarkable. Toxicology negative for salicylates, acetaminophen and serum alcohol. Urine drug screen positive for amphetamines. MENTAL STATUS EXAMINATION GENERAL APPEARANCE, BEHAVIOR AND ATTITUDE: Patient is calm, cooperative, interactive with clinicians and interacts appropriately with her father who is seen in the meeting as well. SPEECH: Limited, however, normal rate, rhythm and volume. MOOD: Described as good. AFFECT: Fairly flat. THOUGHT PROCESSES: Appear to be goal-directed. She continues to have limited responses, however, answers questions appropriately. THOUGHT CONTENT: She denies suicidal or homicidal ideation. She is denying visual or auditory hallucinations. SENSORIUM: Appears clear. COGNITION: She is oriented to person, place and situation. MEMORY: She is really guarded with information. INTELLIGENCE: Appears within normal limits based upon interview. INSIGHT AND JUDGMENT: Limited. TREATMENT Patient was initiated on medications. She did complain of anxiety, and she did present as paranoid. She was pleasant and cooperative throughout the stay. Her father drove from [place] to take her home, and we met with him on the morning of discharge. Patient reported that she felt safe going with him, and agreed to follow up with outpatient care. CONDITION OF PATIENT ON DISCHARGE Considered stable and a minimal risk to herself and others at this time, appropriate for outpatient management. DISPOSITION Patient is discharged to home in the care of her father. It is recommended that she follow up with a psychiatric provider for medication management as well as a therapist for case management. DISCHARGE MEDICATIONS 1. Lexapro 10 mg daily. 2. Risperidone 1 mg every morning and 2 mg at bedtime. DISCHARGE INSTRUCTIONS She was provided the 24-hour crisis line number should symptoms or problems return. ALISSA
== END 2018-03-06 09:25 | disposition home or self-care (01) | DRG 897 ==
LOC: BHS 08:32
PROVIDERS: ADMIT Nurse Practitioner Psychiatric/Mental Health; ATTEND Nurse Practitioner Psychiatric/Mental Health
DX: F15.150 Other stimulant abuse with stimulant-induced psychotic disorder with delusions (principal); F12.10 Cannabis abuse, uncomplicated; F29 Unspecified psychosis not due to a substance or known physiological condition; G47.10 Hypersomnia, unspecified
CPT/HCPCS: 80305; 80320; 80329; 81001; 81025; 82040; 82247; 82310; 82374; 82435; 82565; 82947; 83735; 84075; 84132; 84155; 84295; 84443; 84450; 84460; 84520; 85025; 90853; 93005; 99284; 99285; Q0161; Q0163

== ENCOUNTER → 2018-02-27 | Outpatient (CLI) | payer MEDICAID ==
[~2018-02-27] MED LIST: DIPH-740 PO; ESCI10TA8 PO; ESCI20TA38 PO; RISP-29 PO; RISP2TAB70 PO
== END ==
LOC: AMB 03:33
PROVIDERS: ATTEND Nurse Practitioner
DX: R51 Headache (principal)
CPT/HCPCS: A0425; A0427